=== PATIENT | male | born 1995 | race African-American/Black ===

== ENCOUNTER 2020-09-15 08:54 | Emergency (ER) | payer OTHER ==
[~2020-09-15] VITALS: Ht 182.9 cm; Wt 95.5 kg
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
[2020-09-15 13:20] VITALS: BP 146/91
== END 2020-09-15 13:23 | disposition home or self-care (01) ==
LOC: EDBD 08:54 → M ED 08:54
DX: S73.102A Unspecified sprain of left hip, initial encounter (principal); S80.11XA Contusion of right lower leg, initial encounter; S83.92XA Sprain of unspecified site of left knee, initial encounter; Z91.010 Allergy to peanuts; Y92.9 Unspecified place or not applicable; Y93.9 Activity, unspecified; Y99.9 Unspecified external cause status

== ENCOUNTER → 2021-06-29 | Outpatient (CLI) | payer OTHER ==
[~2021-06-29] MED LIST: ISOVUE-300 61% 50ML VIAL As Ordered ONE; LIDOCAINE 1% MDV 20ML VIAL As Ordered ONE; TRIAMCINOLONE ACETONIDE SUSP 40 MG/ML VIAL (J3301) As Ordered ONE
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
== END ==
LOC: M RADPRO 12:46
PROVIDERS: ATTEND Physician Assistant Surgical
DX: M25.552 Pain in left hip (principal)
CPT/HCPCS: 20610; 77002; J3301; Q9967

== ENCOUNTER 2021-12-17 12:16 | Emergency (ER) | payer OTHER ==
[~2021-12-17] VITALS: Ht 182.9 cm; Wt 109.1 kg
[2021-12-17 13:19] VITALS: BP 149/95
[2021-12-17 13:32] LABS: BASO % 0.3 % (0.0-1.0); EOS # 0.1 10^3/uL (0.0-0.5); EOS % 1.8 % (0.0-3.0); HEMATOCRIT 48.2 % (42.0-52.0); HEMOGLOBIN 15.8 g/dl (13.5-17.5); LYMPH # 1.8 10^3/uL (1.5-5.0); LYMPH % 30.1 % (24.0-44.0); MEAN CORPUSCULAR HEMOGLOBIN 29.1 pg (27.0-33.0); MEAN CORPUSCULAR HGB CONC 32.8 g/dl (32.0-36.5); MEAN CORPUSCULAR VOLUME 88.8 fl (80.0-96.0); MONO # 0.6 10^3/uL (0.0-0.8); MONO % 10.2 % (2.0-8.0); NEUTROPHILS # 3.4 10^3/uL (1.5-8.5); NEUTROPHILS % 56.8 % (36.0-66.0); PLATELET COUNT, AUTOMATED 211 10^3/uL (150-450); RED BLOOD COUNT 5.43 10^6/uL (4.30-6.10); WHITE BLOOD COUNT 6.1 10^3/uL (4.0-10.0)
[2021-12-17 13:59] LABS: ALBUMIN 4.1 GM/DL (3.2-5.2); ALT/SGPT 43 U/L (12-78); BILIRUBIN,TOTAL 0.4 MG/DL (0.2-1.0); BLOOD UREA NITROGEN 14 MG/DL (7-18); CALCIUM LEVEL 9.4 MG/DL (8.5-10.1); CARBON DIOXIDE LEVEL 30 MEQ/L (21-32); CHLORIDE LEVEL 108 MEQ/L (98-107); CREATININE FOR GFR 1.14 MG/DL (0.70-1.30); GLOMERULAR FILTRATION RATE > 60.0 (>60); GLUCOSE, FASTING 97 MG/DL (70-100); POTASSIUM SERUM 4.6 MEQ/L (3.5-5.1); SODIUM LEVEL 141 MEQ/L (136-145); TOTAL PROTEIN 7.6 GM/DL (6.4-8.2)
[2021-12-17] MEDS ORDERED: ISOVUE-370 76% 100ML VIAL As Ordered ONE (14:09)
[2021-12-17] MEDS ORDERED: DOXY-443 PO (15:34)
[2021-12-17] MEDS ORDERED: DOXYCYCLINE HYCLATE 100MG TABLET PO ONE (15:35)
== END 2021-12-17 16:11 | disposition home or self-care (01) ==
LOC: M ED 12:16
DX: L02.01 Cutaneous abscess of face (principal); Z91.010 Allergy to peanuts
CPT/HCPCS: 10060; 36415; 70487; 80053; 85025; 87070; 87077; 87205; 99284; Q9967